=== PATIENT | male | born 1935 | race Caucasian/White ===

== ENCOUNTER → 2016-09-17 | Outpatient (CLI) | payer OTHER ==
--- NOTE | 2016-09-17 09:47 | REP ---
Chest x-ray: Two views. History: Weight gain. Comparison study: December 01, 2013. Findings: There is a large hiatal hernia again noted behind the heart, projecting both to the left and right of the midline. The lungs are symmetrically aerated and otherwise clear. Pleural angles are sharp . The aorta is calcific and tortuous. Degenerative disc changes are seen in the thoracic spine. The heart is felt to be mildly enlarged unchanged. Pulmonary vasculature is not increased. There is no evidence of pulmonary edema or pleural effusion. Impression: Cardiomegaly. Large hiatal hernia. Otherwise no acute disease. Signed by Gregg Vang MD 09/17/2016 09:39 A
== END ==
LOC: M WUC 09:23
PROVIDERS: ATTEND Nurse Practitioner Adult Health
DX: I51.7 Cardiomegaly (principal); K44.9 Diaphragmatic hernia without obstruction or gangrene; R60.9 Edema, unspecified; I48.91 Unspecified atrial fibrillation

== ENCOUNTER → 2017-05-07 | Outpatient (CLI) | payer OTHER ==
[2017-05-07 13:36] LABS: ALBUMIN 3.9 GM/DL (3.2-5.2); ALBUMIN/GLOBULIN RATIO 1.34 (1.00-1.93); ALKALINE PHOSPHATASE 65 U/L (45-117); ALT/SGPT 20 U/L (12-78); ANION GAP 8 MEQ/L (8-16); AST/SGOT 18 U/L (15-37); BASO % 0.5 % (0.0-1.0); BLOOD UREA NITROGEN 21 MG/DL (7-18); CALCIUM LEVEL 9.7 MG/DL (8.8-10.2); CARBON DIOXIDE LEVEL 31 MEQ/L (21-32); CHLORIDE LEVEL 102 MEQ/L (98-107); CHOLESTEROL LEVEL 163 MG/DL (<200); CREATININE FOR GFR 1.09 MG/DL (0.70-1.30); EOS # 0.2 K/mm3 (0.0-0.50); GLOMERULAR FILTRATION RATE > 60.0 (>35); GLUCOSE, FASTING 107 MG/DL (83-110); LARGE UNSTAINED CELL # 0.4 K/mm3 (0.0-0.4); LARGE UNSTAINED CELL % 4.5 % (0.0-4.0); LYMPH # 4.7 K/mm3 (1.5-4.5); LYMPH % 53.2 % (24.0-44.0); MEAN CORPUSCULAR VOLUME 91.2 fl (80.0-96.0); MONO # 0.4 K/mm3 (0.0-0.8); MONO % 4.7 % (0.0-5.0); NEUTROPHILS # 3.1 K/mm3 (1.8-7.7); NEUTROPHILS % 35.2 % (36.0-66.0); PLATELET COUNT, AUTOMATED 143 k/mm3 (150-450); POTASSIUM SERUM 4.3 MEQ/L (3.5-5.1); RED CELL DISTRIBUTION WIDTH 13.6 % (11.5-14.5); SODIUM LEVEL 141 MEQ/L (136-145); TOTAL PROTEIN 6.8 GM/DL (6.4-8.2); TRIGLYCERIDES LEVEL 81 MG/DL (<150); WHITE BLOOD COUNT 8.7 K/mm3 (4.0-10.0)
== END ==
LOC: M WUC 08:53
PROVIDERS: ATTEND Nurse Practitioner Adult Health
DX: I10 Essential (primary) hypertension (principal); Z79.899 Other long term (current) drug therapy; E78.00 Pure hypercholesterolemia, unspecified; E55.9 Vitamin D deficiency, unspecified

== ENCOUNTER → 2017-11-16 | Outpatient (CLI) | payer OTHER ==
[2017-11-16 17:35] LABS: ALBUMIN 3.8 GM/DL (3.2-5.2); ALBUMIN/GLOBULIN RATIO 1.12 (1.00-1.93); ALKALINE PHOSPHATASE 80 U/L (45-117); ALT/SGPT 19 U/L (12-78); ANION GAP 6 MEQ/L (8-16); AST/SGOT 19 U/L (7-37); BILIRUBIN,TOTAL 0.8 MG/DL (0.2-1.0); BLOOD UREA NITROGEN 17 MG/DL (7-18); CALCIUM LEVEL 9.8 MG/DL (8.8-10.2); CARBON DIOXIDE LEVEL 32 MEQ/L (21-32); CHLORIDE LEVEL 104 MEQ/L (98-107); CHOLESTEROL LEVEL 172 MG/DL (<200); CHOLESTEROL RISK RATIO 4.195 (<5); CREATININE FOR GFR 0.94 MG/DL (0.70-1.30); FREE T4 0.94 NG/DL (0.76-1.46); GLOMERULAR FILTRATION RATE > 60.0 (>35); GLUCOSE, FASTING 87 MG/DL (70-100); HDL CHOLESTEROL 41 MG/DL (>40); LDL CHOLESTEROL 112.6 MG/DL (<100); NON-HDL-C 131 MG/DL; POTASSIUM SERUM 4.7 MEQ/L (3.5-5.1); SODIUM LEVEL 142 MEQ/L (136-145); TOTAL PROTEIN 7.2 GM/DL (6.4-8.2); TRIGLYCERIDES LEVEL 92 MG/DL (<150)
[2017-11-16 17:41] LABS: TOTAL 25(OH) VITAMIN D 16.8 NG/ML (30.0-100.0)
[2017-11-16 17:52] LABS: BASO # 0.1 10^3/uL (0.0-0.2); BASO % 0.4 % (0.0-1.0); EOS % 0.2 % (0.0-3.0); HEMATOCRIT 58.4 % (42.0-52.0); HEMOGLOBIN 18.5 g/dl (14.0-18.0); IMMATURE GRANULOCYTE % 0.3 % (0-3.0); LYMPH % 48.2 % (24.0-44.0); MEAN CORPUSCULAR HGB CONC 31.7 g/dl (32.0-36.5); MEAN CORPUSCULAR VOLUME 91.4 fl (80.0-96.0); MONO # 0.7 10^3/uL (0.0-0.8); MONO % 5.9 % (0.0-5.0); NEUTROPHILS # 5.5 10^3/uL (1.8-7.7); PLATELET COUNT, AUTOMATED 123 10^3/uL (150-450); RED BLOOD COUNT 6.39 10^6/uL (4.30-6.10)
[2017-11-16 18:00] LABS: LYMPH # 5.9 10^3/uL (1.5-4.5); POSITIVE DIFF Y; POSITIVE MORPH POS FLAG; SUSPECT SAMPLE POS FLAG; WHITE BLOOD COUNT 12.3 10^3/uL (4.0-10.0)
[2017-11-16 18:29] LABS: ESTIMATED AVERAGE GLUCOSE 117 MG/DL (60-110); HEMOGLOBIN A1c 5.7 %
== END ==
LOC: M WUC 10:51
DX: E78.00 Pure hypercholesterolemia, unspecified (principal); E55.9 Vitamin D deficiency, unspecified; Z79.899 Other long term (current) drug therapy
CPT/HCPCS: 84443

== ENCOUNTER → 2018-11-08 | Outpatient (CLI) | payer MEDICARE ==
[2018-11-08 13:36] LABS: HEMATOCRIT 58.7 % (42.0-52.0); HEMOGLOBIN 18.7 g/dl (13.5-17.5); MEAN CORPUSCULAR HEMOGLOBIN 28.6 pg (27.0-33.0); MEAN CORPUSCULAR HGB CONC 31.9 g/dl (32.0-36.5); MEAN CORPUSCULAR VOLUME 89.9 fl (80.0-96.0); PLATELET COUNT, AUTOMATED 142 10^3/uL (150-450); RED BLOOD COUNT 6.53 10^6/uL (4.30-6.10)
[2018-11-08 14:03] LABS: ALBUMIN 3.9 GM/DL (3.2-5.2); ALT/SGPT 15 U/L (12-78); BLOOD UREA NITROGEN 22 MG/DL (7-18); CALCIUM LEVEL 9.9 MG/DL (8.8-10.2); CARBON DIOXIDE LEVEL 30 MEQ/L (21-32); CHLORIDE LEVEL 104 MEQ/L (98-107); CHOLESTEROL LEVEL 178 MG/DL (<200); CREATININE FOR GFR 1.03 MG/DL (0.70-1.30); GLOMERULAR FILTRATION RATE > 60.0 (>35); GLUCOSE, FASTING 106 MG/DL (70-100); HDL CHOLESTEROL 37 MG/DL (>40); LDL CHOLESTEROL 122 MG/DL (<100); NON-HDL-C 141 MG/DL; POTASSIUM SERUM 4.5 MEQ/L (3.5-5.1); PROSTATIC SPECIFIC AG MONITOR 2.52 NG/ML (< 4.00); SODIUM LEVEL 140 MEQ/L (136-145); TOTAL PROTEIN 7.2 GM/DL (6.4-8.2); TRIGLYCERIDES LEVEL 97 MG/DL (<150)
[2018-11-08 14:23] LABS: WHITE BLOOD COUNT 18.3 10^3/uL (4.0-10.0)
[2018-11-08 14:30] LABS: ATYPICAL LYMPH 52 % (0-5); BASOPHILS 1 % (0-4); EOSINOPHILS 1 % (0-5); LYMPHOCYTES 9 % (16-52); MONOCYTES 8 % (0-8); NEUTROPHILS 29 % (35-75)
[2018-11-08 14:33] LABS: PLATELET ESTIMATE DECREASED (NORMAL)
== END ==
LOC: M WUC 11:44
PROVIDERS: ATTEND Physician Assistant Medical
DX: R53.83 Other fatigue (principal); I10 Essential (primary) hypertension; E78.5 Hyperlipidemia, unspecified; Z12.5 Encounter for screening for malignant neoplasm of prostate

== ENCOUNTER → 2018-11-18 | Outpatient (CLI) | payer MEDICARE ==
[~2018-11-18] MED LIST: CARV3.12 PO; CIPR-249 PO; FINA5TAB2 PO; FLOM0.4C39 PO; FURO40TA2 PO; NYST10CR TOP; ROPI2TAB24 PO; XARE20TA PO
--- NOTE | 2018-11-18 12:07 | REP ---
LUMBAR SPINE, FIVE VIEWS: HISTORY: Back pain. There is no acute fracture or subluxation. There is an old compression fracture of the L1 vertebral body with minimal height loss. The lumbar intervertebral discs are decreased in height. Vacuum phenomenon is present at the L3-4 level. These findings are consistent with disc degeneration. Osteophytes are present throughout the lumbar spine. There is narrowing of the L4-5 and L5-S1 facet joints. There is scoliosis convex to the left. The bony structure is osteopenic. IMPRESSION: Degenerative change as described above. Electronically Signed by Ronal Loyola MD 11/18/2018 12:24 P
== END ==
LOC: M WUC 10:09
PROVIDERS: ATTEND Physician Assistant Medical
DX: M51.37 Other intervertebral disc degeneration, lumbosacral region (principal); M25.78 Osteophyte, vertebrae; M41.9 Scoliosis, unspecified; Z87.81 Personal history of (healed) traumatic fracture

== ENCOUNTER 2018-11-24 10:31 | Emergency (ER) | payer MEDICARE, OTHER ==
[2018-11-24] MEDS ORDERED: FURO40TA2 PO (10:38)
[2018-11-24] MEDS ORDERED: FLOM0.4C39 PO (10:39)
[2018-11-24] MEDS ORDERED: ROPI2TAB24 PO (10:39)
[2018-11-24] MEDS ORDERED: FINA5TAB2 PO (10:39)
[2018-11-24] MEDS ORDERED: XARE20TA PO (10:39)
[2018-11-24] MEDS ORDERED: CARV3.12 PO (10:39)
[2018-11-24 12:01] LABS: BILIRUBIN, URINE MANUAL NEGATIVE (NEGATIVE); GLUCOSE, URINE (UA) MANUAL NEGATIVE (NEGATIVE); KETONE, URINE MANUAL NEGATIVE (NEGATIVE); UROBILINOGEN, URINE MANUAL NORMAL (NORMAL)
[2018-11-24 12:05] LABS: HEMATOCRIT 58.4 % (42.0-52.0); HEMOGLOBIN 18.8 g/dl (13.5-17.5); MEAN CORPUSCULAR HGB CONC 32.2 g/dl (32.0-36.5); MEAN CORPUSCULAR VOLUME 90.1 fl (80.0-96.0); PLATELET COUNT, AUTOMATED 133 10^3/uL (150-450); RED BLOOD COUNT 6.48 10^6/uL (4.30-6.10)
[2018-11-24 12:08] LABS: WHITE BLOOD COUNT 22.1 10^3/uL (4.0-10.0)
[2018-11-24 12:11] LABS: RBC, URINE TNTC /hpf (0-3)
[2018-11-24 12:13] LABS: BACTERIA, URINE MOD AMOUNT; HYALINE CAST, URINE NONE SEEN /lpf (0-1); MUCUS, URINE MOD AMOUNT (NEGATIVE); RENAL EPITHELIAL CELLS, URINE SMALL AMOUNT /hpf; SQUAMOUS EPITHELIAL CELL URINE SMALL AMOUNT /hpf (SMALL AMT)
[2018-11-24 12:14] LABS: AMORPHOUS SEDIMENT, URINE SMALL AMOUNT (NEGATIVE)
[2018-11-24 12:24] LABS: ATYPICAL LYMPH 38 % (0-5); LYMPHOCYTES 12 % (16-52); NEUTROPHILS 50 % (35-75)
[2018-11-24 12:26] LABS: PLATELET ESTIMATE NORMAL (NORMAL)
[2018-11-24 12:30] LABS: CALCIUM LEVEL 9.8 MG/DL (8.8-10.2); CREATININE FOR GFR 1.75 MG/DL (0.70-1.30); GLOMERULAR FILTRATION RATE 39.8 (>35); POTASSIUM SERUM 4.2 MEQ/L (3.5-5.1)
--- NOTE | 2018-11-24 13:46 | REP ---
SCROTAL ULTRASOUND: Real-time sonographic evaluation of the scrotum and contents performed. Testicles demonstrate no mass or torsion. Right testicle is slightly larger than the left, right testicle measuring 4.1 x 2.7 x 3.2 cm and left testicle 3.0 x 2.0 x 2.9 cm. Several cysts are seen in the head of the right epididymis, the largest is 8 mm. Cyst in the lateral left testicle is 5 mm maximally. There are small bilateral hydroceles. A few scattered tiny echogenic calcifications are seen in the testicles. Large left inguinal hernia contains fat and Peristalsing bowel. Resistive index right testicle 0.6 and left testicle 0.48. IMPRESSION: No suspicious testicular mass. No testicular torsion. Small bilateral hydroceles. Large left inguinal hernia contains fat and peristalsis bowel. Electronically Signed by Fritz Malone MD 11/24/2018 04:36 P
[2018-11-24] MEDS ORDERED: NS 1,000 ML IV ONE (14:00)
[2018-11-24] MEDS ORDERED: CIPR-249 PO (14:07)
[2018-11-24 14:18] VITALS: BP 143/96
[2018-11-24] MEDS ORDERED: NYST10CR TOP (17:28)
== END 2018-11-24 14:45 | disposition home or self-care (01) ==
LOC: M ED 10:31
DX: N40.1 Benign prostatic hyperplasia with lower urinary tract symptoms (principal); N39.0 Urinary tract infection, site not specified; T83.098A Other mechanical complication of other urinary catheter, initial encounter; K40.90 Unilateral inguinal hernia, without obstruction or gangrene, not specified as recurrent; I10 Essential (primary) hypertension; Z79.01 Long term (current) use of anticoagulants; Z79.899 Other long term (current) drug therapy

== ENCOUNTER 2018-11-24 15:30 | Emergency (ER) | payer MEDICARE ==
[~2018-11-24 15:30] MED LIST changes: -NYST10CR TOP
[2018-11-24] MEDS ORDERED: NYST10CR TOP (17:28)
[2018-11-24 17:37] VITALS: BP 171/106
== END 2018-11-24 17:39 | disposition home or self-care (01) ==
LOC: M ED 15:30
DX: T83.098A Other mechanical complication of other urinary catheter, initial encounter (principal); N40.0 Benign prostatic hyperplasia without lower urinary tract symptoms; I10 Essential (primary) hypertension; Z79.01 Long term (current) use of anticoagulants; Z79.2 Long term (current) use of antibiotics; Z79.899 Other long term (current) drug therapy

== ENCOUNTER 2018-12-13 19:43 | Emergency (ER) | payer MEDICARE ==
[~2018-12-13] VITALS: Ht 165.1 cm; Wt 97.3 kg
[~2018-12-13 19:43] MED LIST changes: +NYST10CR TOP
[2018-12-14] MEDS ORDERED: CIPR-249 PO (00:29)
[2018-12-14 00:54] VITALS: BP 122/72
== END 2018-12-14 01:18 | disposition home or self-care (01) ==
LOC: M ED 19:43
DX: R33.9 Retention of urine, unspecified (principal); N40.1 Benign prostatic hyperplasia with lower urinary tract symptoms; N30.90 Cystitis, unspecified without hematuria; T83.9XXA Unspecified complication of genitourinary prosthetic device, implant and graft, initial encounter; Y73.2 Prosthetic and other implants, materials and accessory gastroenterology and urology devices associated with adverse incidents; K40.90 Unilateral inguinal hernia, without obstruction or gangrene, not specified as recurrent; I10 Essential (primary) hypertension; I48.91 Unspecified atrial fibrillation; Z79.899 Other long term (current) drug therapy; Z79.01 Long term (current) use of anticoagulants

== ENCOUNTER 2019-01-18 11:31 | Inpatient (IN) | payer MEDICARE ==
[~2019-01-18] VITALS: Ht 170.2 cm; Wt 94.8 kg
[2019-01-18] MEDS ORDERED: NS 1,000 ML IV SCH (11:36)
[2019-01-18] MEDS ORDERED: VALA1TAB2 PO (11:56)
[2019-01-18] MEDS ORDERED: SULF1TAB93 PO (11:56)
[2019-01-18] MEDS ORDERED: PREDOPD OD (11:56)
[2019-01-18] MEDS ORDERED: PRED20TA PO (11:56)
--- NOTE | 2019-01-18 12:28 | REP ---
CT Head without contrast HISTORY: Altered mental status COMPARISON: MRI 06/29/2008 An area of decreased attenuation is present in the right parietal lobe. There is dilatation of the overlying cortical sulci. This represents an old infarction. Areas of decreased attenuation are present in the periventricular and subcortical white matter. This represents small-vessel ischemic disease. There is no intraparenchymal hemorrhage, acute infarct, mass or midline shift. The ventricular system and cortical sulci are dilated consistent with moderate volume loss. There is no extra cerebral collection. There is no fracture. The visualized sinuses are clear. IMPRESSION: 1. 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 2. Small vessel ischemic disease. 3. Moderate volume loss. Electronically Signed by Ronal Loyola MD 01/18/2019 12:20 P
[2019-01-18 12:45] LABS: HEMATOCRIT 52.3 % (42.0-52.0); HEMOGLOBIN 17.6 g/dl (13.5-17.5); MEAN CORPUSCULAR HEMOGLOBIN 29.4 pg (27.0-33.0); MEAN CORPUSCULAR HGB CONC 33.7 g/dl (32.0-36.5); MEAN CORPUSCULAR VOLUME 87.5 fl (80.0-96.0); PLATELET COUNT, AUTOMATED 149 10^3/uL (150-450); RED BLOOD COUNT 5.98 10^6/uL (4.30-6.10)
[2019-01-18 12:49] LABS: WHITE BLOOD COUNT 25.7 10^3/uL (4.0-10.0)
[2019-01-18 13:12] LABS: ATYPICAL LYMPH 20 % (0-5); EOSINOPHILS 1 % (0-5); LYMPHOCYTES 41 % (16-52); MONOCYTES 4 % (0-8); NEUTROPHILS 31 % (35-75); PLATELET ESTIMATE DECREASED (NORMAL)
[2019-01-18 13:13] LABS: SMUDGE CELLS 1+
--- NOTE | 2019-01-18 13:15 | REP ---
Clinical: Altered mental status. Comparison: 09/17/2016. Findings: Stable cardiomegaly and large hiatal hernia again noted. Lung hwang are clear and without focal consolidation, effusion, or pneumothorax. Skeletal structures demonstrate age-related changes. Impression: Stable chest x-ray. No acute process appreciated. Electronically Signed by Bentley Chris MD 01/18/2019 01:07 P
[2019-01-18 13:25] LABS: ALBUMIN 3.6 GM/DL (3.2-5.2); ALT/SGPT 26 U/L (12-78); BILIRUBIN,DIRECT 0.4 MG/DL (0.0-0.2); BILIRUBIN,TOTAL 1.3 MG/DL (0.2-1.0); BLOOD UREA NITROGEN 33 MG/DL (7-18); CARBON DIOXIDE LEVEL 30 MEQ/L (21-32); CHLORIDE LEVEL 98 MEQ/L (98-107); CPK CREATINE PHOSPHOKINASE 310 U/L (39-308); CREATININE FOR GFR 1.17 MG/DL (0.70-1.30); GLOMERULAR FILTRATION RATE > 60.0 (>35); GLUCOSE, FASTING 105 MG/DL (70-100); MB/CK RELATIVE INDEX 2.13 (< OR =4); POTASSIUM SERUM 3.3 MEQ/L (3.5-5.1); SODIUM LEVEL 137 MEQ/L (136-145); TOTAL PROTEIN 6.7 GM/DL (6.4-8.2); TROPONIN I < 0.02 NG/ML (< 0.10)
[2019-01-18 13:35] LABS: OSMOLALITY SERUM 289 MOSM/KG (280-301)
--- NOTE | 2019-01-18 15:48 | HPEPDOC ---
[facility] Medical History & Physical Date of Admission January 18, 2019 Date of Service: January 18, 2019 History and Physical CHIEF COMPLAINT: Falls HISTORY OF PRESENT ILLNESS: 83 yo male brought in by family after being found on floor at home, for approximately 5-6 hours. Patient states he tripped over his dog. Patient appears to be a questionable historian, with varying levels of cognition. Currently he denies any medical complaints. 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 PHYSICAL EXAMINATION: VITAL SIGNS: See below GENERAL APPEARANCE: Disheveled, NAD, lying comfortably in bed HEENT: NC/AT, blind CARDIOVASCULAR: +S1S2, irregular LUNGS: CTA B/L ABDOMEN: soft, NT, +BS PSYCHIATRIC: alert, awake, oriented to person and time LABORATORY DATA: See below. IMAGING: MICROBIOLOGY: Please see below. ASSESSMENT: 83 yo male for falls, found to be in afib (known) with RVR and leuko cytosis. #falls - PT/OT eval - PFS eval #leukocytosis - unknown etiology - some atypical lymphs with smudge cells - peripheral smear pending - BCx pending, UA unremarkable, CT head unremarkable, CXR unremarkable - start empiric ABx - IR recs for 48 hours off NOAC for LP #thrombocytopenia - no signs of active bleeding - continue to follow #afib/RVR - continue with rate control - carvedilol with hold parameters - a/c - xarelto #hypokalemia - check mag - continue to follow and replete as needed #CHF - lasix #BPH - continue home regimen #shingles - continue with valcyclovir and prednisone #hyperbilirubinemia - follow CMP - possibly reactive - LUQ sono if no improvement tomorrow #DVT prophylaxis Vital Signs Vital Signs Date Time Temp Pulse Resp B/P (MAP) Pulse Ox O2 Delivery O2 Flow Rate FiO2 01/18/19 15:33 112 95 01/18/19 15:30 122/67 (85) 01/18/19 14:48 98.3 01/18/19 11:42 18 Room Air Laboratory Data Labs 24H Laboratory Tests 2 01/18/19 12:34: White Blood Count 25.7H, Red Blood Count 5.98, Hemoglobin 17.6H, Hematocrit 52.3H, Mean Corpuscular Volume 87.5, Mean Corpuscular Hemoglobin 29.4, Mean Corpuscular Hemoglobin Concent 33.7, Red Cell Distribution Width 14.4, Platelet Count 149L, Lymphocytes # (Auto) , Monocytes # (Auto) , Nucleated Red Blood Cells % (auto) 0.0, Neutrophils 31L, Band Neutrophils 3, Lymphocytes (Manual) 41, Monocytes (Manual) 4, Eosinophils (Manual) 1, Atypical Lymphocytes 20H, Smudge Cells 1+, Platelet Estimate DECREASED, Anion Gap 9, Glomerular Filtration Rate > 60.0, Osmolality 289, Lactic Acid Level 1.3, Calcium Level 10.0, Aspartate Amino Transf (AST/SGOT) 45H, Alanine Aminotransferase (ALT/SGPT) 26, Alkaline Phosphatase 70, Total Bilirubin 1.3H, Direct Bilirubin 0.4H, Ammonia < 10, Total Creatine Kinase 310H, Creatine Kinase MB 7.0H, Creatine Kinase MB Relative Index 2.13, Troponin I < 0.02, Total Protein 6.7, Albumin 3.6, Albumin/Globulin Ratio 1.16, Thyroid Stimulating Hormone (TSH) 1.450 01/18/19 14:46: Urine Color YELLOW, Urine Appearance CLEAR, Urine pH 5.0, Urine Specific Baird 1.015, Urine Protein NEGATIVE, Urine Glucose (UA) NEGATIVE, Urine Ketones NEGATIVE, Urine Blood 2+H, Urine Nitrite NEGATIVE, Urine Bilirubin NEGATIVE, Urine Urobilinogen 0.2, Urine Leukocyte Esterase NEGATIVE, Urine WBC (Auto) 1, Urine RBC (Auto) 26H, Urine Hyaline Casts (Auto) 0, Urine Bacteria (Auto) NEGATIVE, Urine Squamous Epithelial Cells 0, Urine Sperm (Auto) CBC/BMP Laboratory Tests 01/18/19 12:34 Red Blood Count 5.98, Mean Corpuscular Volume 87.5, Mean Corpuscular Hemoglobin 29.4, Mean Corpuscular Hemoglobin Concent 33.7, Red Cell Distribution Width 14.4, Lymphocytes # (Auto) , Monocytes # (Auto) Microbiology Microbiology 01/18/19 Blood Culture, Received Pending 01/18/19 Blood Culture, Received Pending Home Medications Scheduled Carvedilol (Carvedilol) 3.125 Mg Tab, 3.125 MG PO BID Finasteride (Finasteride) 5 Mg Tab, 5 MG PO DAILY Furosemide (Furosemide) 40 Mg Tab, 40 MG PO DAILY Prednisolone Acetate (Prednisolone Acetate 1% Opth Susp) 5 Ml Drops.susp, 1 DROP OD DAILY Prednisone (Prednisone) 20 Mg Tablet, 60 MG PO DAILY FILLED 01/17/19 FOR 5 DAYS Rivaroxaban (Xarelto) 20 Mg Tab, 20 MG PO DAILY Ropinirole HCl (Ropinirole ER) 2 Mg Tab, 2 MG PO BID Sulfamethoxazole/Trimethoprim (Sulfamethoxazole-Tmp Ds Tablet) 1 Each Tablet, 1 TAB PO BID FILLED 01/17/19 FOR 7 DAYS Tamsulosin HCl (Flomax) 0.4 Mg Cap, 0.4 MG PO DAILY Valacyclovir HCl (Valacyclovir) 1,000 Mg Tablet, 1,000 MG PO TID FILLED 01/17/19 FOR 7 DAYS Scheduled PRN Cyclobenzaprine HCl (Cyclobenzaprine HCl) 10 Mg Tablet, 10 MG PO BID PRN for MUSCLE SPASMS Allergies Coded Allergies: No Known Allergies (Unverified , 12/13/18) A-FIB/CHADSVASC A-FIB History Current/History of A-Fib/PAF?: Yes Current PO Anticoag Therapy: Yes MO MASON MD January 18, 2019 15:48
[2019-01-18] MEDS ORDERED: CYCL10TA PO (15:59)
[2019-01-18 16:30] VITALS: BP 145/98
[2019-01-18] MEDS: NS 1,000 ML IV SCH (16:30)
[2019-01-18] MEDS ORDERED: CYCLOBENZAPRINE 10 MG TAB PO PRN (16:30)
[2019-01-18] MEDS: cefTRIAXone SOD 1 GM in D5W MINI-BAG PLUS 50 ML IV SCH (17:54)
[2019-01-18] MEDS: valACYclovir HCL 500 MG TAB PO SCH ×2 (18:43→21:25)
[2019-01-18 20:00] VITALS: BP 126/78
[2019-01-18 20:20] LABS: CPK CREATINE PHOSPHOKINASE 234 U/L (39-308); MB/CK RELATIVE INDEX 2.52 (< OR =4); TROPONIN I < 0.02 NG/ML (< 0.10)
--- NOTE | 2019-01-18 21:03 | ECGEPIP ---
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
[2019-01-18] MEDS: CARVedilol 3.125 MG TAB PO SCH (21:25)
[2019-01-18] MEDS: rOPINIRole 2MG TAB PO SCH (21:25)
[2019-01-19] VITALS (15 sets, daily range): BP systolic 100–148; BP diastolic 60–100
[2019-01-19] MEDS ORDERED: METOPROLOL 5 MG/5 ML VIAL IV SCH (01:30)
[2019-01-19 03:05] LABS: INR 1.18; PROTHROMBIN TIME 15.2 SECONDS (12.1-14.4)
[2019-01-19 03:06] LABS: PARTIAL THROMBOPLASTIN TIME 30.4 SECONDS (25.4-37.6)
[2019-01-19 03:09] LABS: ABG BASE EXCESS -0.5 (-2.0-2.0); ABG HCO3 23.1 MEQ/L (22.0-26.0); ABG O2 SATURATION 95.1 % (95.0-99.0); ABG PARTIAL PRESSURE CO2 35.4 mmHg (35.0-45.0); ABG PARTIAL PRESSURE O2 71.9 mmHg (75.0-100.0); ABG TOTAL CO2 24.2 MEQ/L (23.0-31.0); ABG pH (ARTERIAL) 7.433 UNITS (7.350-7.450)
[2019-01-19 05:54] LABS: HEMOGLOBIN 15.8 g/dl (13.5-17.5); MEAN CORPUSCULAR HEMOGLOBIN 29.4 pg (27.0-33.0); MEAN CORPUSCULAR HGB CONC 33.6 g/dl (32.0-36.5); MEAN CORPUSCULAR VOLUME 87.5 fl (80.0-96.0); PLATELET COUNT, AUTOMATED 144 10^3/uL (150-450); RED BLOOD COUNT 5.37 10^6/uL (4.30-6.10)
[2019-01-19 06:06] LABS: WHITE BLOOD COUNT 25.1 10^3/uL (4.0-10.0)
[2019-01-19] MEDS: NS 1,000 ML IV SCH ×2 (06:07→20:55)
[2019-01-19 06:19] LABS: ALBUMIN 3.1 GM/DL (3.2-5.2); ALT/SGPT 21 U/L (12-78); BILIRUBIN,TOTAL 1.5 MG/DL (0.2-1.0); BLOOD UREA NITROGEN 25 MG/DL (7-18); CALCIUM LEVEL 9.4 MG/DL (8.8-10.2); CARBON DIOXIDE LEVEL 26 MEQ/L (21-32); CHLORIDE LEVEL 104 MEQ/L (98-107); GLOMERULAR FILTRATION RATE > 60.0 (>35); GLUCOSE, FASTING 98 MG/DL (70-100); POTASSIUM SERUM 3.5 MEQ/L (3.5-5.1); SODIUM LEVEL 138 MEQ/L (136-145); TOTAL PROTEIN 5.7 GM/DL (6.4-8.2)
[2019-01-19 07:25] LABS: ATYPICAL LYMPH 20 % (0-5); BASOPHILS 1 % (0-4); LYMPHOCYTES 48 % (16-52); MONOCYTES 5 % (0-8); NEUTROPHILS 25 % (35-75)
[2019-01-19 07:26] LABS: ANISOCYTOSIS 1+; PLATELET ESTIMATE DECREASED (NORMAL); SMUDGE CELLS 1+
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
[2019-01-19] MEDS: CARVedilol 3.125 MG TAB PO SCH (11:10)
[2019-01-19] MEDS: prednisoLONE ACET 1% OPHTH SUSP 5ML OD SCH (11:10)
[2019-01-19] MEDS: rOPINIRole 2MG TAB PO SCH ×2 (11:10→20:55)
[2019-01-19] MEDS: valACYclovir HCL 500 MG TAB PO SCH ×3 (11:10→20:55)
[2019-01-19] MEDS: FINASTERIDE 5 MG TAB PO SCH (11:11)
[2019-01-19] MEDS: FUROSEMIDE 40 MG TAB PO SCH (11:11)
[2019-01-19] MEDS: TAMSULOSIN 0.4 MG CAP PO SCH (11:11)
[2019-01-19] MEDS: RIVAROXABAN 20 MG TAB (XARELTO) PO SCH (11:12)
[2019-01-19] MEDS: predniSONE 20 MG TAB PO SCH (11:12)
--- NOTE | 2019-01-19 12:32 | REP ---
RIGHT UPPER QUADRANT SONOGRAPHY: HISTORY: Elevated liver enzymes. FINDINGS: Exam quality is inhibited substantially by patient body habitus and bowel gas. Scanning demonstrates limited visualization of gallbladder with no definite stone or polyp. There is a trace amount of ascitic fluid visible in the right upper quadrant. Common bile duct is normal measuring 0.5 cm in greatest diameter. Poor insonation and poor visualization of the liver. There is a 4.9 x 6.3 x 4.7 cm cortical cyst in the upper pole of the right kidney. The right kidney measures 10.8 x 4.9 x 5.4 cm. The pancreas is obscured by abdominal gas. IMPRESSION: Right renal cyst. Image quality quite limited. Trace ascites upper abdomen on the right. Otherwise negative. Electronically Signed by Gregg Vang MD 01/19/2019 12:52 P
--- NOTE | 2019-01-19 14:52 | NUR ---
Recommend pureed solids, thin liquids via small straw sips, upright position & OOB as tolerated, full assist PO intake. Dysphagia tx f/u diet tolerance & carryover recommendations. Addendum: 01/19/19 at 1453 by BOO REILLY [facility] Amended: Links added.
[2019-01-19] MEDS: cefTRIAXone SOD 1 GM in D5W MINI-BAG PLUS 50 ML IV SCH (15:47)
[2019-01-19] MEDS ORDERED: METOPROLOL 5 MG/5 ML VIAL IV STA (16:34)
[2019-01-19] MEDS: CARVedilol 6.25 MG TAB PO SCH (20:55)
[2019-01-20 04:00] VITALS: BP 123/71
[2019-01-20 07:49] LABS: HEMATOCRIT 48.8 % (42.0-52.0); MEAN CORPUSCULAR HEMOGLOBIN 28.6 pg (27.0-33.0); MEAN CORPUSCULAR HGB CONC 32.8 g/dl (32.0-36.5); MEAN CORPUSCULAR VOLUME 87.1 fl (80.0-96.0); PLATELET COUNT, AUTOMATED 174 10^3/uL (150-450)
[2019-01-20 08:00] VITALS: BP 132/78
[2019-01-20 08:18] LABS: ALBUMIN 3.2 GM/DL (3.2-5.2); ALT/SGPT 22 U/L (12-78); BLOOD UREA NITROGEN 22 MG/DL (7-18); CALCIUM LEVEL 9.8 MG/DL (8.8-10.2); CARBON DIOXIDE LEVEL 28 MEQ/L (21-32); CHLORIDE LEVEL 105 MEQ/L (98-107); CREATININE FOR GFR 0.94 MG/DL (0.70-1.30); GLOMERULAR FILTRATION RATE > 60.0 (>35); GLUCOSE, FASTING 116 MG/DL (70-100); SODIUM LEVEL 141 MEQ/L (136-145); TOTAL PROTEIN 6.8 GM/DL (6.4-8.2)
[2019-01-20 08:21] LABS: WHITE BLOOD COUNT 23.6 10^3/uL (4.0-10.0)
[2019-01-20 08:27] LABS: ATYPICAL LYMPH 17 % (0-5); LYMPHOCYTES 37 % (16-52); MONOCYTES 11 % (0-8); NEUTROPHILS 35 % (35-75); PLATELET ESTIMATE NORMAL (NORMAL)
[2019-01-20 08:28] LABS: SMUDGE CELLS 1+
[2019-01-20 08:30] LABS: ANISOCYTOSIS 1+
[2019-01-20] MEDS: rOPINIRole 2MG TAB PO SCH ×2 (08:31→20:35)
[2019-01-20] MEDS: TAMSULOSIN 0.4 MG CAP PO SCH (08:31)
[2019-01-20] MEDS: FINASTERIDE 5 MG TAB PO SCH (08:31)
[2019-01-20] MEDS: prednisoLONE ACET 1% OPHTH SUSP 5ML OD SCH (08:31)
[2019-01-20] MEDS: RIVAROXABAN 20 MG TAB (XARELTO) PO SCH (08:31)
[2019-01-20] MEDS: valACYclovir HCL 500 MG TAB PO SCH ×3 (08:31→20:35)
[2019-01-20] MEDS: predniSONE 20 MG TAB PO SCH (08:31)
[2019-01-20] MEDS: FUROSEMIDE 40 MG TAB PO SCH (08:32)
[2019-01-20] MEDS: CARVedilol 6.25 MG TAB PO SCH ×2 (08:32→20:36)
--- NOTE | 2019-01-20 08:47 | IPNPDOC ---
Text Note Date of Service The patient was seen on 01/20/19. NOTE Subjective: No acute overnight events reported. Patient states he is feeling much better today. His cognition is much improved. Objective: General: NAD, sitting comfortably in chair eating breakfast, in good spirits, disheveled HEENT: NC/AT, poor dentition Lungs: CTA B/L Heart: +S1S2, tachy, irregular Abd: soft, obese, NT, +BS Ext: peripheral edema ASSESSMENT: 83 yo male for falls, found to be in afib (known) with RVR and leukocytosis. #AMS - much improved today - as per son patient is at baseline #falls - PT/OT eval - PFS eval #leukocytosis - improving - unknown etiology - some atypical lymphs with smudge cells - peripheral smear noted - concern for CLL - oncology c/s pending - BCx pending, UA unremarkable, CT head unremarkable, CXR unremarkable - empiric ABx #hyperbilirubinemia - RUQ sono noted #thrombocytopenia - no signs of active bleeding - continue to follow #afib/RVR - continue with rate control - increased carvedilol with hold parameters - a/c - xarelto #hypokalemia - check mag - continue to follow and replete as needed #CHF - lasix #BPH - continue home regimen #shingles - continue with valcyclovir and prednisone #DVT prophylaxis - as above, receiving xarelto VS,Fishbone, I+O VS, Fishbone, I+O Laboratory Tests 01/20/19 07:24 Red Blood Count 5.60, Mean Corpuscular Volume 87.1, Mean Corpuscular Hemoglobin 28.6, Mean Corpuscular Hemoglobin Concent 32.8, Red Cell Distribution Width 14.5, Lymphocytes # (Auto) , Monocytes # (Auto) , Calcium Level 9.8, Aspartate Amino Transf (AST/SGOT) 28, Alanine Aminotransferase (ALT/SGPT) 22, Alkaline Phosphatase 67, Total Bilirubin 1.0, Total Protein 6.8, Albumin 3.2 Vital Signs Date Time Temp Pulse Resp B/P (MAP) Pulse Ox O2 Delivery O2 Flow Rate FiO2 01/20/19 08:32 115 132/78 01/20/19 08:00 98.3 20 97 01/18/19 11:42 Room Air I&O- Last 24 Hours up to 6 AM 5/30/19 06:00 Intake Total 1080 ml Output Total 250 ml Balance 830 ml MO MASON MD January 20, 2019 08:47
--- NOTE | 2019-01-20 10:33 | NUR ---
Recommend all liquids in Provale Cup, no straws. Reported to PALMIRA Ruiz. Addendum: 01/20/19 at 1034 by BOO REILLY [facility] Amended: Links added.
[2019-01-20 12:00] VITALS: BP 126/91
[2019-01-20] MEDS: NS 1,000 ML IV SCH (12:38)
[2019-01-20 16:00] VITALS: BP 132/77
[2019-01-20] MEDS: cefTRIAXone SOD 1 GM in D5W MINI-BAG PLUS 50 ML IV SCH (16:38)
[2019-01-20 20:00] VITALS: BP 120/71
[2019-01-20 23:59] VITALS: BP 121/78
[2019-01-21 04:00] VITALS: BP 122/73
[2019-01-21 05:52] LABS: HEMOGLOBIN 15.4 g/dl (13.5-17.5); MEAN CORPUSCULAR HEMOGLOBIN 28.2 pg (27.0-33.0); MEAN CORPUSCULAR HGB CONC 32.1 g/dl (32.0-36.5); MEAN CORPUSCULAR VOLUME 87.8 fl (80.0-96.0); PLATELET COUNT, AUTOMATED 184 10^3/uL (150-450); RED BLOOD COUNT 5.47 10^6/uL (4.30-6.10)
[2019-01-21 06:21] LABS: WHITE BLOOD COUNT 35.1 10^3/uL (4.0-10.0)
[2019-01-21 06:24] LABS: BLOOD UREA NITROGEN 27 MG/DL (7-18); CALCIUM LEVEL 9.2 MG/DL (8.8-10.2); CARBON DIOXIDE LEVEL 29 MEQ/L (21-32); CHLORIDE LEVEL 107 MEQ/L (98-107); CREATININE FOR GFR 1.04 MG/DL (0.70-1.30); GLOMERULAR FILTRATION RATE > 60.0 (>35); GLUCOSE, FASTING 131 MG/DL (70-100); POTASSIUM SERUM 3.8 MEQ/L (3.5-5.1); SODIUM LEVEL 141 MEQ/L (136-145)
[2019-01-21 08:00] VITALS: BP 139/94
[2019-01-21] MEDS: predniSONE 20 MG TAB PO SCH (09:17)
[2019-01-21] MEDS: FINASTERIDE 5 MG TAB PO SCH (09:18)
[2019-01-21] MEDS: RIVAROXABAN 20 MG TAB (XARELTO) PO SCH (09:18)
[2019-01-21] MEDS: prednisoLONE ACET 1% OPHTH SUSP 5ML OD SCH (09:19)
[2019-01-21] MEDS: FUROSEMIDE 40 MG TAB PO SCH (09:19)
[2019-01-21] MEDS: TAMSULOSIN 0.4 MG CAP PO SCH (09:19)
[2019-01-21] MEDS: CARVedilol 6.25 MG TAB PO SCH ×2 (09:19→20:48)
[2019-01-21] MEDS: rOPINIRole 2MG TAB PO SCH ×2 (09:19→20:48)
[2019-01-21] MEDS: valACYclovir HCL 500 MG TAB PO SCH ×3 (09:19→20:48)
--- NOTE | 2019-01-21 09:20 | NUR ---
Recommend upgrade level 2 solids, continue thin liquids in Provale cup, OOB as tolerated for meals please. Addendum: 01/21/19 [address] [facility] Amended: Links added.
--- NOTE | 2019-01-21 11:27 | IPNPDOC ---
Text Note Date of Service The patient was seen on 01/21/19. NOTE Subjective: No acute overnight events reported. No new medical complaints. Denies chest pain, shortness of breath, abdominal pain, headaches, N/V/D. Objective: General: NAD, lying comfortably in bed, in good spirits HEENT: NC/AT, poor dentition Lungs: CTA B/L Heart: +S1S2, tachy, irregular Abd: soft, obese, NT, +BS Ext: peripheral edema ASSESSMENT: 83 yo male for falls, found to be in afib (known) with RVR and leukocytosis. #AMS - as per son patient is at baseline #falls - PT/OT eval - PFS eval #leukocytosis - unknown etiology - some atypical lymphs with smudge cells - peripheral smear noted - concern for CLL - BCx pending, UA unremarkable, CT head unremarkable, CXR unremarkable - empiric ABx - flow cytometry pending #hyperbilirubinemia - RUQ sono noted #thrombocytopenia - no signs of active bleeding - continue to follow #afib/RVR - continue with rate control - increased carvedilol with hold parameters - a/c - xarelto #hypokalemia - check mag - continue to follow and replete as needed #CHF - lasix #BPH - continue home regimen #shingles - continue with valcyclovir and prednisone #DVT prophylaxis - as above, receiving xarelto VS,Fishbone, I+O VS, Fishbone, I+O Laboratory Tests 01/21/19 05:27 Red Blood Count 5.47, Mean Corpuscular Volume 87.8, Mean Corpuscular Hemoglobin 28.2, Mean Corpuscular Hemoglobin Concent 32.1, Red Cell Distribution Width 14.6 H, Calcium Level 9.2 Vital Signs Date Time Temp Pulse Resp B/P (MAP) Pulse Ox O2 Delivery O2 Flow Rate FiO2 01/21/19 08:00 97.9 101 18 139/94 (109) 94 01/18/19 11:42 Room Air I&O- Last 24 Hours up to 6 AM 01/21/19 06:00 Intake Total 3095 ml Output Total 900 ml Balance 2195 ml MO MASON MD January 21, 2019 11:27
[2019-01-21 12:00] VITALS: BP 159/99
[2019-01-21 16:00] VITALS: BP 146/94
[2019-01-21] MEDS: cefTRIAXone SOD 1 GM in D5W MINI-BAG PLUS 50 ML IV SCH (19:30)
[2019-01-21 20:00] VITALS: BP 137/85
[2019-01-21] MEDS ORDERED: METOPROLOL 5 MG/5 ML VIAL IV STA (22:52)
[2019-01-21 23:59] VITALS: BP 144/95
[2019-01-22 04:00] VITALS: BP 124/87
[2019-01-22 04:48] LABS: HEMATOCRIT 47.2 % (42.0-52.0); HEMOGLOBIN 15.2 g/dl (13.5-17.5); MEAN CORPUSCULAR HEMOGLOBIN 28.3 pg (27.0-33.0); MEAN CORPUSCULAR HGB CONC 32.2 g/dl (32.0-36.5); MEAN CORPUSCULAR VOLUME 87.9 fl (80.0-96.0); PLATELET COUNT, AUTOMATED 199 10^3/uL (150-450); RED BLOOD COUNT 5.37 10^6/uL (4.30-6.10)
[2019-01-22 05:11] LABS: BLOOD UREA NITROGEN 23 MG/DL (7-18); CALCIUM LEVEL 9.8 MG/DL (8.8-10.2); CARBON DIOXIDE LEVEL 31 MEQ/L (21-32); CHLORIDE LEVEL 104 MEQ/L (98-107); CREATININE FOR GFR 0.91 MG/DL (0.70-1.30); GLOMERULAR FILTRATION RATE > 60.0 (>35); GLUCOSE, FASTING 124 MG/DL (70-100); POTASSIUM SERUM 3.8 MEQ/L (3.5-5.1); SODIUM LEVEL 140 MEQ/L (136-145); WHITE BLOOD COUNT 30.3 10^3/uL (4.0-10.0)
[2019-01-22 08:00] VITALS: BP 129/86
--- NOTE | 2019-01-22 09:03 | IPNPDOC ---
Text Note Date of Service The patient was seen on 01/22/19. NOTE Subjective: No acute overnight events reported. No new medical complaints. Denies chest pain, shortness of breath, abdominal pain, headaches, N/V/D. Objective: General: NAD, lying comfortably in bed, in good spirits HEENT: NC/AT, poor dentition Lungs: CTA B/L Heart: +S1S2, tachy, irregular Abd: soft, obese, NT, +BS Ext: peripheral edema ASSESSMENT: 83 yo male for falls, found to be in afib (known) with RVR and leukocytosis. #AMS - as per son patient is at baseline #falls - continue with PT/OT #leukocytosis - some atypical lymphs with smudge cells - peripheral smear noted - concern for CLL - BCx pending, UA unremarkable, CT head unremarkable, CXR unremarkable - empiric ABx - flow cytometry pending - d/w oncology - assistance appreciated #hyperbilirubinemia - RUQ sono noted #thrombocytopenia - no signs of active bleeding - continue to follow #afib/RVR - continue with rate control - increased carvedilol with hold parameters - a/c - xarelto #hypokalemia - resolved #CHF - lasix #BPH - continue home regimen #shingles - continue with valcyclovir and prednisone #DVT prophylaxis - as above, receiving xarelto VS,Fishbone, I+O VS, Fishbone, I+O Laboratory Tests 01/22/19 04:17 Red Blood Count 5.37, Mean Corpuscular Volume 87.9, Mean Corpuscular Hemoglobin 28.3, Mean Corpuscular Hemoglobin Concent 32.2, Red Cell Distribution Width 14.6 H, Calcium Level 9.8 Vital Signs Date Time Temp Pulse Resp B/P (MAP) Pulse Ox O2 Delivery O2 Flow Rate FiO2 01/22/19 08:00 97.6 71 20 129/86 (100) 95 01/22/19 04:00 1.0 01/18/19 11:42 Room Air I&O- Last 24 Hours up to 6 AM 01/22/19 06:00 Intake Total 1020 ml Output Total 1375 ml Balance -355 ml MO MASON MD Jan 22, 2019 09:03
[2019-01-22] MEDS: RIVAROXABAN 20 MG TAB (XARELTO) PO SCH (09:26)
[2019-01-22] MEDS: FUROSEMIDE 40 MG TAB PO SCH (09:26)
[2019-01-22] MEDS: CARVedilol 6.25 MG TAB PO SCH ×2 (09:26→20:03)
[2019-01-22] MEDS: FINASTERIDE 5 MG TAB PO SCH (09:27)
[2019-01-22] MEDS: predniSONE 20 MG TAB PO SCH (09:27)
[2019-01-22] MEDS: valACYclovir HCL 500 MG TAB PO SCH ×3 (09:27→20:02)
[2019-01-22] MEDS: rOPINIRole 2MG TAB PO SCH ×2 (09:27→20:02)
[2019-01-22] MEDS: prednisoLONE ACET 1% OPHTH SUSP 5ML OD SCH (09:27)
[2019-01-22] MEDS: TAMSULOSIN 0.4 MG CAP PO SCH (09:27)
[2019-01-22 10:15] LABS: ALBUMIN 3.2 GM/DL (3.2-5.2); BILIRUBIN,DIRECT 0.3 MG/DL (0.0-0.2); BILIRUBIN,TOTAL 0.8 MG/DL (0.2-1.0); TOTAL PROTEIN 6.3 GM/DL (6.4-8.2)
[2019-01-22 13:07] VITALS: BP 133/86
[2019-01-22] MEDS: cefTRIAXone SOD 1 GM in D5W MINI-BAG PLUS 50 ML IV SCH (17:41)
[2019-01-22 22:00] VITALS: BP 129/83
[2019-01-23 05:54] LABS: HEMATOCRIT 48.4 % (42.0-52.0); HEMOGLOBIN 15.6 g/dl (13.5-17.5); MEAN CORPUSCULAR HEMOGLOBIN 28.5 pg (27.0-33.0); MEAN CORPUSCULAR HGB CONC 32.2 g/dl (32.0-36.5); MEAN CORPUSCULAR VOLUME 88.3 fl (80.0-96.0); PLATELET COUNT, AUTOMATED 190 10^3/uL (150-450); RED BLOOD COUNT 5.48 10^6/uL (4.30-6.10); WHITE BLOOD COUNT 29.2 10^3/uL (4.0-10.0)
[2019-01-23 06:00] VITALS: BP 135/86
[2019-01-23 06:14] LABS: BLOOD UREA NITROGEN 22 MG/DL (7-18); CALCIUM LEVEL 9.5 MG/DL (8.8-10.2); CARBON DIOXIDE LEVEL 31 MEQ/L (21-32); CHLORIDE LEVEL 101 MEQ/L (98-107); CREATININE FOR GFR 0.96 MG/DL (0.70-1.30); GLOMERULAR FILTRATION RATE > 60.0 (>35); GLUCOSE, FASTING 122 MG/DL (70-100); POTASSIUM SERUM 4.1 MEQ/L (3.5-5.1); SODIUM LEVEL 139 MEQ/L (136-145)
[2019-01-23] MEDS: rOPINIRole 2MG TAB PO SCH ×2 (08:57→19:57)
[2019-01-23] MEDS: predniSONE 20 MG TAB PO SCH (08:57)
[2019-01-23] MEDS: valACYclovir HCL 500 MG TAB PO SCH ×3 (08:58→19:57)
[2019-01-23] MEDS: FINASTERIDE 5 MG TAB PO SCH (08:59)
[2019-01-23] MEDS: CARVedilol 6.25 MG TAB PO SCH ×2 (08:59→19:57)
[2019-01-23] MEDS: TAMSULOSIN 0.4 MG CAP PO SCH (09:01)
[2019-01-23] MEDS: FUROSEMIDE 40 MG TAB PO SCH (09:01)
[2019-01-23] MEDS: RIVAROXABAN 20 MG TAB (XARELTO) PO SCH (09:02)
--- NOTE | 2019-01-23 10:12 | IPNPDOC ---
Text Note Date of Service The patient was seen on 01/23/19. NOTE Subjective: No acute overnight events reported. No new medical complaints. Denies chest pain, shortness of breath, abdominal pain, headaches, N/V/D. Objective: General: NAD, sitting comfortably in chair, son at bedside, in good spirits HEENT: NC/AT, poor dentition Lungs: CTA B/L Heart: +S1S2, tachy, irregular Abd: soft, obese, NT, +BS Ext: peripheral edema ASSESSMENT: 83 yo male for falls, found to be in afib (known) with RVR and leukocytosis. #AMS - as per son patient is at baseline #falls - continue with PT/OT #leukocytosis - some atypical lymphs with smudge cells - peripheral smear noted - concern for CLL - BCx NTD, UA unremarkable, CT head unremarkable, CXR unremarkable - empiric ABx - day #6 ceftriaxone - complete 7 days should be sufficient - flow cytometry pending - d/w oncology - assistance appreciated #hyperbilirubinemia - resolved - RUQ sono noted #thrombocytopenia - resolved - no signs of active bleeding #afib/RVR - continue with rate control - increased carvedilol with hold parameters - a/c - xarelto #hypokalemia - resolved #CHF - lasix #BPH - continue home regimen #shingles - continue with valcyclovir and prednisone #DVT prophylaxis - as above, receiving xarelto Dispo: pending flow cytometry - concern for CLL; follow up PT - recs for d/c to rehab VS,Fishbone, I+O VS, Fishbone, I+O Laboratory Tests 01/23/19 05:36 Red Blood Count 5.48, Mean Corpuscular Volume 88.3, Mean Corpuscular Hemoglobin 28.5, Mean Corpuscular Hemoglobin Concent 32.2, Red Cell Distribution Width 14.3, Calcium Level 9.5 Vital Signs Date Time Temp Pulse Resp B/P (MAP) Pulse Ox O2 Delivery O2 Flow Rate FiO2 01/23/19 08:59 84 136/86 01/23/19 06:00 97.6 16 96 01/22/19 04:00 1.0 01/18/19 11:42 Room Air I&O- Last 24 Hours up to 6 AM 01/23/19 06:00 Intake Total 1040 ml Output Total 1825 ml Balance -785 ml MO MASON MD Jan 23, 2019 10:12
--- NOTE | 2019-01-23 13:12 | ECGEPIP ---
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
[2019-01-23 14:00] VITALS: BP 138/90
[2019-01-23] MEDS: prednisoLONE ACET 1% OPHTH SUSP 5ML OD SCH (18:17)
[2019-01-23] MEDS: cefTRIAXone SOD 1 GM in D5W MINI-BAG PLUS 50 ML IV SCH (18:17)
[2019-01-23 22:00] VITALS: BP 140/82
[2019-01-24 06:00] VITALS: BP 135/89
[2019-01-24 06:26] LABS: HEMATOCRIT 49.7 % (42.0-52.0); HEMOGLOBIN 16.2 g/dl (13.5-17.5); MEAN CORPUSCULAR HGB CONC 32.6 g/dl (32.0-36.5); MEAN CORPUSCULAR VOLUME 88.9 fl (80.0-96.0); PLATELET COUNT, AUTOMATED 190 10^3/uL (150-450); RED BLOOD COUNT 5.59 10^6/uL (4.30-6.10)
[2019-01-24 06:41] LABS: WHITE BLOOD COUNT 37.4 10^3/uL (4.0-10.0)
[2019-01-24 06:48] LABS: BLOOD UREA NITROGEN 23 MG/DL (7-18); CALCIUM LEVEL 9.6 MG/DL (8.8-10.2); CARBON DIOXIDE LEVEL 31 MEQ/L (21-32); CHLORIDE LEVEL 100 MEQ/L (98-107); CREATININE FOR GFR 0.95 MG/DL (0.70-1.30); GLOMERULAR FILTRATION RATE > 60.0 (>35); GLUCOSE, FASTING 110 MG/DL (70-100); POTASSIUM SERUM 3.8 MEQ/L (3.5-5.1); SODIUM LEVEL 136 MEQ/L (136-145)
[2019-01-24] MEDS: rOPINIRole 2MG TAB PO SCH (08:16)
[2019-01-24] MEDS: valACYclovir HCL 500 MG TAB PO SCH (08:16)
[2019-01-24] MEDS: FINASTERIDE 5 MG TAB PO SCH (08:17)
[2019-01-24 08:18] VITALS: BP 141/84
[2019-01-24] MEDS: prednisoLONE ACET 1% OPHTH SUSP 5ML OD SCH (08:18)
[2019-01-24] MEDS: TAMSULOSIN 0.4 MG CAP PO SCH (08:18)
[2019-01-24] MEDS: RIVAROXABAN 20 MG TAB (XARELTO) PO SCH (08:18)
[2019-01-24] MEDS: predniSONE 20 MG TAB PO SCH (08:18)
[2019-01-24] MEDS: CARVedilol 6.25 MG TAB PO SCH (08:18)
[2019-01-24] MEDS: FUROSEMIDE 40 MG TAB PO SCH (08:18)
[2019-01-24] MEDS ORDERED: CARV6.25 PO (13:20)
[2019-01-24] MEDS ORDERED: LIDOCAINE 1% MDV 20ML VIAL XX ONE (13:45)
[2019-01-24] MEDS ORDERED: cefTRIAXone SOD 1 GM VIAL (J0696) IM ONE (13:45)
[2019-01-24] MEDS ORDERED: cefTRIAXone SOD 1 GM in D5W MINI-BAG PLUS 50 ML IV ONE (14:00)
--- NOTE | 2019-01-24 14:09 | DS.PDOC ---
Discharge Summary General Date of Admission January 18, 2019 at 15:36 Date of Discharge 01/24/19 Specialist/Consultants Involve: Elzbieta Abdul MD Discharge Summary PROCEDURES PERFORMED DURING STAY: [None]. 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 HISTORY OF PRESENT ILLNESS: 83 yo male brought in by family after being found on floor at home, for approximately 5-6 hours. Patient states he tripped over his dog. Patient appeared to be a questionable historian, with varying levels of cognition. HOSPITAL COURSE: Admitted for further evaluation and treatment. Started on empiric antibiotic therapy. Responded well, returning to baseline cognition. His leukocytosis was accompanied with atypical lymphocytes and smudge cells. Oncology was consulted, and recommended flow cytometry and outpatient follow up, with further direction pending results of flow cytometry. Patient was seen by PT and deemed safe for discharge home. DISCHARGE MEDICATIONS: Please see below. ALLERGIES: Please see below. PHYSICAL EXAMINATION ON DISCHARGE: VITAL SIGNS: Please see below. PHYSICAL EXAMINATION: GENERAL APPEARANCE: NAD, lying comfortably in bed HEENT: NC/AT CARDIOVASCULAR: +S1S2, irregular LUNGS: CTA B/L ABDOMEN: soft, NT, +BS PSYCHIATRIC: alert, awake, oriented to person and time ACTIVITY: [As tolerated]. DIET: 2 gram sodium DISPOSITION: Discharge home. DISCHARGE INSTRUCTIONS: 1. Follow up with oncology dr. abdul in 3-5 days. 2. follow up with pcp in 3-5 days. DISCHARGE CONDITION: [Stable]. TIME SPENT ON DISCHARGE: 37 minutes. Vital Signs/I&Os Vital Signs Date Time Temp Pulse Resp B/P (MAP) Pulse Ox O2 Delivery O2 Flow Rate FiO2 01/24/19 08:18 96 141/84 01/24/19 06:00 97.7 20 96 01/22/19 04:00 1.0 01/18/19 11:42 Room Air I&O- Last 24 Hours up to 6 AM 01/24/19 06:00 Intake Total 1680 ml Output Total 1000 ml Balance 680 ml Laboratory Data Labs 24H Laboratory Tests 2 01/24/19 05:45: Nucleated Red Blood Cells % (auto) 0.1H, Anion Gap 5L, Glomerular Filtration Rate > 60.0, Blood Urea Nitrogen 23H, Creatinine 0.95, Sodium Level 136, Potassium Level 3.8, Chloride Level 100, Carbon Dioxide Level 31, Calcium Level 9.6 CBC/BMP Laboratory Tests 01/24/19 05:45 Red Blood Count 5.59, Mean Corpuscular Volume 88.9, Mean Corpuscular Hemoglobin 29.0, Mean Corpuscular Hemoglobin Concent 32.6, Red Cell Distribution Width 14.5, Calcium Level 9.6 Microbiology Microbiology 01/18/19 Blood Culture - Final, Complete NO GROWTH AFTER 5 DAYS 01/18/19 Blood Culture - Final, Complete NO GROWTH AFTER 5 DAYS 01/18/19 MRSA Screen - Final, Complete 01/18/19 Respiratory Virus Panel (PCR) ([facility]) - Final, Complete Discharge Medications Scheduled Carvedilol (Carvedilol) 6.25 Mg Tablet, 6.25 MG PO BID Finasteride (Finasteride) 5 Mg Tab, 5 MG PO DAILY, (Reported) Furosemide (Furosemide) 40 Mg Tab, 40 MG PO DAILY, (Reported) Prednisolone Acetate (Prednisolone Acetate 1% Opth Susp) 5 Ml Drops.susp, 1 DROP OD DAILY, (Reported) Prednisone (Prednisone) 20 Mg Tablet, 60 MG PO DAILY, (Reported) FILLED 01/17/19 FOR 5 DAYS Rivaroxaban (Xarelto) 20 Mg Tab, 20 MG PO DAILY, (Reported) Ropinirole HCl (Ropinirole ER) 2 Mg Tab, 2 MG PO BID, (Reported) Sulfamethoxazole/Trimethoprim (Sulfamethoxazole-Tmp Ds Tablet) 1 Each Tablet, 1 TAB PO BID, (Reported) FILLED 01/17/19 FOR 7 DAYS Tamsulosin HCl (Flomax) 0.4 Mg Cap, 0.4 MG PO DAILY, (Reported) Valacyclovir HCl (Valacyclovir) 1,000 Mg Tablet, 1,000 MG PO TID, (Reported) FILLED 01/17/19 FOR 7 DAYS Scheduled PRN Cyclobenzaprine HCl (Cyclobenzaprine HCl) 10 Mg Tablet, 10 MG PO BID PRN for MUSCLE SPASMS, (Reported) Allergies Coded Allergies: No Known Allergies (Unverified , 12/13/18) MO MASON MD Jan 24, 2019 14:09
== END 2019-01-24 14:20 | disposition home or self-care (01) | DRG 195 ==
LOC: EDBD 11:31 → M ED 11:31 → M ED INP 15:36 → M PCU 16:30 → M MS5PR 01-22 13:00
PROVIDERS: ADMIT Internal Medicine; ATTEND Internal Medicine
DX: J18.9 Pneumonia, unspecified organism (principal); I48.91 Unspecified atrial fibrillation; R29.6 Repeated falls; I50.9 Heart failure, unspecified; G20 Parkinson's disease; Z86.73 Personal history of transient ischemic attack (TIA), and cerebral infarction without residual deficits; D72.829 Elevated white blood cell count, unspecified; Z79.899 Other long term (current) drug therapy; Z79.52 Long term (current) use of systemic steroids; H40.9 Unspecified glaucoma; N40.0 Benign prostatic hyperplasia without lower urinary tract symptoms; B02.9 Zoster without complications; E87.6 Hypokalemia

== ENCOUNTER → 2019-02-28 | Outpatient (CLI) | payer MEDICARE ==
[~2019-02-28] MED LIST changes: +ARTH650T11 PO; +CARV6.25 PO; +CYCL10TA PO; +D-10TAB3 PO; +FISH1000 PO; +GABA-843 PO; +GASTROGRAFIN SOLUTION 30ML (Q9963) As Ordered ONE; +ISOVUE-370 76% 100ML VIAL (Q9967) As Ordered ONE; +MULTCAP PO; +PRED20TA PO; +PREDOPD OD; +SULF1TAB93 PO; +VALA1TAB2 PO
--- NOTE | 2019-02-28 21:41 | REP ---
Clinical: Lymphoma. Technique: Axial contrast enhanced images from the thoracic inlet to the upper abdomen with coronal and sagittal re-formations. Comparison: None. Findings: Marked eventration / large paraesophageal gastric hiatal hernia involves the left hemidiaphragm containing the entire stomach without obstruction or further pathology. Associated left lower lobe and lingular passive atelectasis is appreciated. Very small areas of "tree in bud" type opacities are noted within the basilar right upper lobe which are nonspecific but may represent subtle resolving pneumonia. No further consolidation. No effusion. No pneumothorax. Mediastinum demonstrates atherosclerotic changes to the thoracic aorta and coronary arteries without aortic aneurysm or cardiomegaly. No pericardial effusion. No axillary, hilar, or mediastinal adenopathy is appreciated. Skeletal structures demonstrate age-related degenerative changes. Impression: 1. Large left paraesophageal gastric hiatal hernia with eventration of the diaphragm and associated passive atelectasis at the left lung base and lingula. 2. Very subtle small "tree in bud" type opacities are noted within the basilar right upper lobe which are nonspecific but may represent subtle resolving pneumonia. 3. Atherosclerotic disease to the thoracic aorta and coronary arteries. 4. No adenopathy. No effusion. Electronically Signed by Bentley Chris MD 02/28/2019 09:33 P
--- NOTE | 2019-02-28 21:49 | REP ---
Clinical: Lymphoma. Technique: Axial contrast enhanced images from the lung bases to the pubic symphysis using oral (per protocol) and 100 ml Isovue 370 intravenous contrast material with coronal and sagittal re-formations. Comparison: None. Findings: Lung bases demonstrate large left paraesophageal gastric hiatal hernia with eventration of the left diaphragm and passive atelectasis at the left lung base. The stomach demonstrates associated rotation along the long access without obstruction. Liver, spleen, pancreas, gallbladder, bilateral adrenal glands are normal. Kidneys demonstrate age-related cortical atrophic change and 6.3 cm simple right renal cyst along with sub centimeter bilateral simple cysts. Small and large bowel is without obstruction or acute inflammatory process. There is a large left inguinal hernia extending into the kar scrotum containing mesenteric fat and nonobstructed loops of sigmoid colon and descending colon. Diverticulosis noted without acute diverticulitis. Pelvis demonstrates partially collapsed bladder with mass effect from enlarged prostate gland. No ascites. No free air. No adenopathy. Atherosclerotic changes of the aorta and vasculature noted without aneurysm or dissection. Musculoskeletal structures demonstrate degenerative changes without focal osseous abnormality. Impression: 1. No adenopathy, mass, ascites, or focal inflammatory changes. 2. Large left inguinal hernia extending to the left kar scrotum containing mesenteric fat and multiple loops of non obstructed descending and sigmoid colon. 3. Diverticulosis. 4. Large paraesophageal gastric hiatal hernia. 5. Further chronic changes as described above. Electronically Signed by Bentley Chris MD 02/28/2019 09:41 P
== END ==
LOC: M RAD 11:53
PROVIDERS: ATTEND Internal Medicine Medical Oncology
DX: C85.99 Non-Hodgkin lymphoma, unspecified, extranodal and solid organ sites (principal); K44.9 Diaphragmatic hernia without obstruction or gangrene; R91.8 Other nonspecific abnormal finding of lung field; I25.10 Atherosclerotic heart disease of native coronary artery without angina pectoris
CPT/HCPCS: 71260; 74177; Q9963; Q9967

== ENCOUNTER → 2019-09-09 | Outpatient (CLI) | payer MEDICARE ==
[~2019-09-09] MED LIST changes: -ARTH650T11 PO; +ARTH650T4 PO; -GASTROGRAFIN SOLUTION 30ML (Q9963) As Ordered ONE; -ISOVUE-370 76% 100ML VIAL (Q9967) As Ordered ONE; -VALA1TAB2 PO; +VALA1TAB64 PO
--- NOTE | 2019-09-09 15:08 | REP ---
Whole body radionuclide bone scan: History: Low back pain. 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 Technique: 22.0 mCi technetium 99m MDP is injected and standard whole body bone scan images are acquired. Scintigraphic findings: There is uptake in bilateral kidneys and in the urinary bladder. There is a levoconvex lumbar scoliotic curve. Some degenerative uptake is seen in the lumbar spine but no significant focus of increased uptake is seen at the L2 level to correlate with the recent MRI findings. CT study shows a sclerotic lesion in the L2 vertebral body. There is a focus of increased uptake in the anterior end of the left 6th rib consistent with a recent fracture. There is arthritic uptake in each wrist, bilaterally in the shoulders, bilaterally in the knees, and in the right first MTP joint consistent with arthropathy. Impression: Arthritic uptake pattern. Left rib lesion consistent with healing rib fracture. There is no evidence to suggest skeletal metastatic disease. Electronically Signed by Gregg Vang MD 09/09/2019 08:48 P
== END ==
LOC: M RAD 07:52
PROVIDERS: ATTEND Physician Assistant Medical
DX: M54.5 Low back pain (principal); D43.4 Neoplasm of uncertain behavior of spinal cord; M46.96 Unspecified inflammatory spondylopathy, lumbar region
CPT/HCPCS: 78306; A9503

== ENCOUNTER → 2020-03-19 | Outpatient (REF) | payer MEDICARE ==
[~2020-03-19] MED LIST changes: +ALLO100T PO; +ARTH650T11 PO; -ARTH650T4 PO; +CYCL-707 PO; -CYCL10TA PO; +IMBR420T PO; +VALA1TAB5 PO; -VALA1TAB64 PO
[2020-04-13 21:42] LABS: HEMATOCRIT 49.1 % (42.0-52.0); HEMOGLOBIN 14.2 g/dl (13.5-17.5); MEAN CORPUSCULAR HEMOGLOBIN 28.7 pg (27.0-33.0); MEAN CORPUSCULAR HGB CONC 28.9 g/dl (32.0-36.5); MEAN CORPUSCULAR VOLUME 99.4 fl (80.0-96.0); PLATELET COUNT, AUTOMATED 101 10^3/uL (150-450); RED BLOOD COUNT 4.94 10^6/uL (4.30-6.10)
[2020-04-13 21:45] LABS: WHITE BLOOD COUNT 251.3 10^3/uL (4.0-10.0)
[2020-04-13 21:46] LABS: ATYPICAL LYMPH 29 % (0-5); LYMPHOCYTES 65 % (16-44); MONOCYTES 1 % (0-5); NEUTROPHILS 5 % (28-66); NUCLEATED RED BLOOD CELL 1 % (0-0)
[2020-04-13 21:47] LABS: PLATELET ESTIMATE DECREASED (NORMAL)
[2020-05-25 09:48] LABS: GLUCOSE, FASTING SEE SEPARATE REPORT
== END ==
LOC: M WUC 09:47
PROVIDERS: ATTEND Physician Assistant Medical
DX: R53.83 Other fatigue (principal); I10 Essential (primary) hypertension; E78.2 Mixed hyperlipidemia; Z12.5 Encounter for screening for malignant neoplasm of prostate
CPT/HCPCS: 36415; 80053; 80061; 84439; 84443; 85025; G0103